=== PATIENT | female | born 1970 ===

== ENCOUNTER → 2021-08-21 01:38 | Outpatient (CLI) | payer BC, SELFPAY ==
[2021-08-21 21:19] LABS: SARS-CoV-2 RNA PCR Negative
== END ==
PROVIDERS: PCP Nurse Practitioner Family; Visit Provider Nurse Practitioner Family
DX: R50.9 Fever, unspecified (principal); R51.9 Headache, unspecified; Z20.822 Contact with and (suspected) exposure to COVID-19
CPT/HCPCS: C9803; U0003; U0005